=== PATIENT | female | born 1960 | race Caucasian/White ===

== ENCOUNTER → 2019-07-08 | Outpatient (CLI) | payer SELFPAY ==
[~2019-07-08] VITALS: Ht 160 cm; Wt 124.3 kg
[~2019-07-08] MED LIST: CELEXA40 MG PO; NORVASC 5MG5 MG/TAB PO; PRINZIDE 25 MG-1 TAB PO; SYNTHROID0.075 MG/T PO; WELLBUTRIN SR150 M1 PO
[2019-07-08 09:39] VITALS: BP 169/60; PULSE 81
== END ==
LOC: EDBD 09:15 → COL.CARD 09:15
DX: R07.9 Chest pain, unspecified (principal); I10 Essential (primary) hypertension
CPT/HCPCS: A9500